=== PATIENT | male | born 1935 | race Caucasian/White ===

== ENCOUNTER 2017-04-19 21:41 | Emergency (ER) | payer MEDICARE ==
[~2017-04-19] VITALS: Ht 167.6 cm; Wt 81.8 kg
[~2017-04-19 21:41] MED LIST: ALLO300T2 PO; CALC500T42 PO; FERR325T PO; METO25TA3 PO; PANT40TA3 PO; PRAV20TA2 PO; TAMS0.4C4 PO; XARE15TA PO
[2017-04-19 21:45] VITALS: BP 142/86; PULSE 84; RESP 16; TEMP 98.4; O2SAT 96
[2017-04-19] MEDS ORDERED: SODIUM CHLORIDE 0.9% FLUSH 10 ML FLUSH IVF PRN (22:15)
--- NOTE | 2017-04-19 22:18 | PD ---
HPI Chief Complaint: General Weakness Time Seen by Provider: 22:14 Travel History International Travel<30 days: No Contact w/Intl Traveler<30days: No Traveled to known affect area: No History of Present Illness HPI 82-year-old white male presents to the emergency department by [facility] for weakness and fatigue. Patient states that he went out for walk at 5 PM today, got tired, and sat in the median on the road and apparently fell asleep. He says that he was walking for long time before he felt tired but could not quite make it home. Currently he complains of being very tired with bilateral leg weakness. Denies falls. He suspects he fell asleep. Patient denies dizziness, LOC, headache, fever, chills, cough, chest pain, shortness of breath, belly pain , leg pain. Chronic medical conditions include atrial fibrillation which he takes anticoagulants. States she down from [facility] yesterday which is a three-hour ride and lives for half the year in [place]. PFSH Past Medical History Hx Anticoagulant Therapy: Yes Atrial Fibrillation: Yes Heart Rhythm Problems: Yes (BUNDLE BRANCH BLOCK) Cardiovascular Problems: Yes High Cholesterol: Yes Diminished Hearing: No Gout: Yes Hypertension: Yes Respiratory: Yes (HOSPITALIZED FOR PNEUMONIA 6 MONTHS AGO IN [place].) Pneumonia: Yes Ulcer: Yes Past Surgical History Tonsillectomy: Yes Other Surgery: Yes (VARICOSE VEIN STRIPPING BOTH LEGS) Social History Alcohol Use: Yes (4 GLASSES OF WINE PER DAY) Tobacco Use: No Substance Use: No Allergies-Medications (Allergen,Severity, Reaction): Coded Allergies: lisinopril (Unverified Allergy, Mild, 04/19/17) Reported Meds & Prescriptions Reported Meds & Active Scripts Active Reported Pravastatin 20 Mg Tab 20 Mg PO DAILY Xarelto (Rivaroxaban) 15 Mg Tab 15 Mg PO DAILY Calcium 500 Mg Tab 500 Mg PO DAILY Ferrous Sulfate 325 Mg Tab 325 Mg PO DAILY Pantoprazole (Pantoprazole Sodium) 40 Mg Tab 40 Mg PO DAILY Metoprolol Tartrate 25 Mg Tab 25 Mg PO DAILY Allopurinol 300 Mg Tab 300 Mg PO DAILY Tamsulosin (Tamsulosin HCl) 0.4 Mg Cap 0.4 Mg PO HS Review of Systems Except as stated in HPI: all other systems reviewed are Neg Physical Exam Narrative GENERAL: Well-developed well-nourished appearing fatigued in no apparent distress, urine odor SKIN: Focused skin assessment warm/dry. No ecchymosis, erythema or edema. No evidence of trauma HEAD: Atraumatic. Normocephalic. EYES: Pupils equal and round. No scleral icterus. No injection or drainage. ENT: No nasal bleeding or discharge. Mucous membranes pink and moist. NECK: Trachea midline. No JVD. No midline cervical tenderness CARDIOVASCULAR: Regular rate and rhythm. No murmur appreciated. RESPIRATORY: No accessory muscle use. Clear to auscultation. Breath sounds equal bilaterally. GASTROINTESTINAL: Abdomen soft, non-tender, nondistended. Hepatic and splenic margins not palpable. MUSCULOSKELETAL: No obvious deformities. No clubbing. No cyanosis. No edema. Homans sign negative bilateral legs NEUROLOGICAL: Awake and alert. No obvious cranial nerve deficits. Motor grossly within normal limits. Normal speech. PSYCHIATRIC: Appropriate mood and affect; insight and judgment normal. Data Data Last Documented VS Vital Signs Date Time Temp Pulse Resp B/P (MAP) Pulse Ox O2 Delivery O2 Flow Rate FiO2 04/19/17 21:45 98.4 84 16 142/86 (104) 96 Orders Orders Electrocardiogram (04/19/17 22:14) Complete Blood Count With Diff (04/19/17 22:14) Comprehensive Metabolic Panel (04/19/17 22:14) Magnesium (Mg) (04/19/17 22:14) B-Type Natriuretic Peptide (04/19/17 22:14) Ckmb (Isoenzyme) Profile (04/19/17 22:14) Troponin I (04/19/17 22:14) Act Partial Throm Time (Ptt) (04/19/17 22:14) Prothrombin Time / Inr (Pt) (04/19/17 22:14) Urinalysis - C+S If Indicated (04/19/17 22:14) Chest, Single Ap (04/19/17 22:14) Blood Glucose (04/19/17 22:14) Ecg Monitoring (04/19/17 22:14) Iv Access Insert/Monitor (04/19/17 22:14) Oximetry (04/19/17 22:14) Sodium Chloride 0.9% Flush (Ns Flush) (04/19/17 22:15) Orthostatic Vital Signs (04/19/17 22:14) Labs Laboratory Tests Test 04/19/17 22:14 04/19/17 22:35 White Blood Count 11.5 TH/MM3 Red Blood Count 4.11 MIL/MM3 Hemoglobin 14.0 GM/DL Hematocrit 41.5 % Mean Corpuscular Volume 100.9 FL Mean Corpuscular Hemoglobin 34.1 PG Mean Corpuscular Hemoglobin Concent 33.9 % Red Cell Distribution Width 13.4 % Platelet Count 136 TH/MM3 Mean Platelet Volume 8.5 FL Neutrophils (%) (Auto) 85.6 % Lymphocytes (%) (Auto) 4.7 % Monocytes (%) (Auto) 9.5 % Eosinophils (%) (Auto) 0.0 % Basophils (%) (Auto) 0.2 % Neutrophils # (Auto) 9.8 TH/MM3 Lymphocytes # (Auto) 0.5 TH/MM3 Monocytes # (Auto) 1.1 TH/MM3 Eosinophils # (Auto) 0.0 TH/MM3 Basophils # (Auto) 0.0 TH/MM3 CBC Comment DIFF FINAL Differential Comment MDM Medical Decision Making Medical Screen Exam Complete: Yes Emergency Medical Condition: Yes Differential Diagnosis Hypoglycemia versus rhabdo versus electrolyte abnormality Narrative Course 82-year-old male presents emergency department for weakness and fatigue after walking for several hours this afternoon. She started walking about 5 PM and was found in the median of the road approximately 1-1/2 hours ago. Patient states that he sat down and fell asleep. Patient denies being lost however [facility] states he was lost. Patient currently complains of bilateral leg weakness. Patient has A. fib his compliance with medication. Denies history of CVA, pulmonary or abdominal issues. Labs pending Imaging pending Discussed case with Dr Young and will transfer care over to him. Condition: Stable Zeny Lundberg Apr 19, 2017 22:18
[2017-04-19 22:39] VITALS: BP 144/85; RESP 16
[2017-04-19 22:45] LABS: AUTOMATED NEUTROPHIL # 9.8 TH/MM3 (1.8-7.7); BASOPHIL % 0.2 % (0.0-2.0); HEMATOCRIT 41.5 % (39.0-51.0); HEMO FLAGS DIFF FINAL; LYMPH % 4.7 % (9.0-44.0); LYMPHOCYTE # 0.5 TH/MM3 (1.0-4.8); MEAN CELL VOLUME 100.9 FL (80.0-100.0); MEAN CORPUSCULAR HEMOGLOBIN 34.1 PG (27.0-34.0); MEAN CORPUSCULAR HGB CONC 33.9 % (32.0-36.0); MONO % 9.5 % (0.0-8.0); NEUT % 85.6 % (16.0-70.0); PLATELET COUNT 136 TH/MM3 (150-450); RED BLOOD COUNT 4.11 MIL/MM3 (4.50-5.90); RED CELL DISTRIBUTION WIDTH 13.4 % (11.6-17.2); WHITE BLOOD COUNT 11.5 TH/MM3 (4.0-11.0)
[2017-04-19 23:01] LABS: INTERNATIONAL NORMALIZED RATIO 1.3 RATIO
[2017-04-19 23:07] LABS: ANION GAP 10 MEQ/L (5-15); BICARBONATE 26.3 MEQ/L (21.0-32.0); BLOOD UREA NITROGEN 11 MG/DL (7-18); CHLORIDE 108 MEQ/L (98-107); GLOMERULAR FILTRATION RATE 57 ML/MIN (>89); POTASSIUM 3.8 MEQ/L (3.5-5.1); SODIUM (NA) 144 MEQ/L (136-145)
[2017-04-19 23:08] LABS: ALT (GPT) 25 U/L (12-78); AST (GOT) 37 U/L (15-37)
--- NOTE | 2017-04-19 23:08 | RADRPT ---
EXAM DATE/TIME: 04/19/2017 22:18 [facility] COMPARISON: No previous studies available for comparison. INDICATIONS : Palpitations and weakness. MEDICAL HISTORY : A-fib. SURGICAL HISTORY : None. ENCOUNTER: Initial ACUITY: 1 day PAIN SCORE: 0/10 LOCATION: Bilateral chest FINDINGS: A single view of the chest demonstrates the lungs to be symmetrically aerated without evidence of mas s, infiltrate or effusion. Minimal basilar atelectasis. Tortuous aorta. CONCLUSION: 1. Minimal basilar atelectasis. Tortuous aorta. Daron Rivas MD on April 19, 2017 at 23:06 Board Certified Radiologist. This report was verified electronically.
[2017-04-19 23:12] LABS: ALKALINE PHOSPHATASE 93 U/L (45-117); CREATINE KINASE 276 U/L (39-308); TOTAL BILIRUBIN ADULT 1.5 MG/DL (0.2-1.0)
[2017-04-19 23:25] LABS: CKMB 2.4 NG/ML (0.5-3.6)
[2017-04-19 23:38] VITALS: BP 141/87; RESP 16
[2017-04-19 23:39] VITALS: BP 148/86; RESP 16
--- NOTE | 2017-04-20 01:42 | PD ---
Physical Exam Narrative Patient was seen by my physical therapy assistant and signed out to me. Data Data Last Documented VS Vital Signs Date Time Temp Pulse Resp B/P (MAP) Pulse Ox O2 Delivery O2 Flow Rate FiO2 04/19/17 23:39 77 16 148/86 (106) 04/19/17 21:45 98.4 96 Orders Orders Electrocardiogram (04/19/17 22:14) Complete Blood Count With Diff (04/19/17 22:14) Comprehensive Metabolic Panel (04/19/17 22:14) Magnesium (Mg) (04/19/17 22:14) B-Type Natriuretic Peptide (04/19/17 22:14) Ckmb (Isoenzyme) Profile (04/19/17 22:14) Troponin I (04/19/17 22:14) Act Partial Throm Time (Ptt) (04/19/17 22:14) Prothrombin Time / Inr (Pt) (04/19/17 22:14) Urinalysis - C+S If Indicated (04/19/17 22:14) Chest, Single Ap (04/19/17 22:14) Blood Glucose (04/19/17 22:14) Ecg Monitoring (04/19/17 22:14) Iv Access Insert/Monitor (04/19/17 22:14) Oximetry (04/19/17 22:14) Sodium Chloride 0.9% Flush (Ns Flush) (04/19/17 22:15) Orthostatic Vital Signs (04/19/17 22:14) CKMB (04/19/17 22:35) CKMB% (04/19/17 22:35) Labs Laboratory Tests Test 04/19/17 22:14 04/19/17 22:35 White Blood Count 11.5 TH/MM3 Red Blood Count 4.11 MIL/MM3 Hemoglobin 14.0 GM/DL Hematocrit 41.5 % Mean Corpuscular Volume 100.9 FL Mean Corpuscular Hemoglobin 34.1 PG Mean Corpuscular Hemoglobin Concent 33.9 % Red Cell Distribution Width 13.4 % Platelet Count 136 TH/MM3 Mean Platelet Volume 8.5 FL Neutrophils (%) (Auto) 85.6 % Lymphocytes (%) (Auto) 4.7 % Monocytes (%) (Auto) 9.5 % Eosinophils (%) (Auto) 0.0 % Basophils (%) (Auto) 0.2 % Neutrophils # (Auto) 9.8 TH/MM3 Lymphocytes # (Auto) 0.5 TH/MM3 Monocytes # (Auto) 1.1 TH/MM3 Eosinophils # (Auto) 0.0 TH/MM3 Basophils # (Auto) 0.0 TH/MM3 CBC Comment DIFF FINAL Differential Comment Prothrombin Time 14.0 SEC Prothromb Time International Ratio 1.3 RATIO Activated Partial Thromboplast Time 28.0 SEC Blood Urea Nitrogen 11 MG/DL Creatinine 1.22 MG/DL Random Glucose 107 MG/DL Total Protein 6.4 GM/DL Albumin 3.5 GM/DL Calcium Level 8.5 MG/DL Magnesium Level 1.0 MG/DL Alkaline Phosphatase 93 U/L Aspartate Amino Transf (AST/SGOT) 37 U/L Alanine Aminotransferase (ALT/SGPT) 25 U/L Total Bilirubin 1.5 MG/DL Sodium Level 144 MEQ/L Potassium Level 3.8 MEQ/L Chloride Level 108 MEQ/L Carbon Dioxide Level 26.3 MEQ/L Anion Gap 10 MEQ/L Estimat Glomerular Filtration Rate 57 ML/MIN Total Creatine Kinase 276 U/L Creatine Kinase MB 2.4 NG/ML Troponin I 0.03 NG/ML B-Type Natriuretic Peptide 81 PG/ML MDM Supervised Visit with THIEN: Yes Interpretation(s) 1:35 AM. Chest x-ray shows no acute consolidation. Minimal basilar atelectasis. CBC WBC 11.5. Hemoglobin 14.0. MCV 100.9. Platelet 136. 85 neutrophil. CMP within normal limit. Cardiac enzymes are normal. INR 1.3. Narrative Course 1:42 AM. Reexamination patient's feeling fine. Patient has no complaint. Patient wants to leave. Diagnosis Primary Impression: Weakness Patient Instructions: General Instructions Additional Instruction: Encourage by mouth fluids. Follow-up with personal physician. Return as needed. Med/Other Pt SpecificInfo: No Change to Meds Disposition: 01 DISCHARGE HOME Condition: Stable Oliverio Young MD Apr 20, 2017 01:42
[2017-04-20 07:00] VITALS: BP 130/81; PULSE 76; RESP 16; TEMP 97.8; O2SAT 98
[2017-04-20 07:44] LABS: BACTERIA, URINE RARE /hpf; BLOOD, URINE TRACE (NEG); COMMENT (UR) CULT NOT INDICATED; CULTURE IF INDICATED CULT NOT INDICATED; GLUCOSE,URINE NEG (NEG); HYALINE CAST, URINE 29 /lpf (RARE); KETONE, URINE 40 mg/dL (NEG); MUCUS URINE FEW /lpf (OCC); NITRITE,URINE NEG (NEG); PH, URINE 5.5 (5.0-8.5); SQUAMOUS EPITHELIAL CELL URINE 1 /hpf (0-5); URINE COLOR YELLOW (YELLW/STRAW)
--- NOTE | 2017-04-20 09:10 | EKG ---
Date Performed: 04/19/2017 Time Performed: 23:13:14 PTAGE: 82 years EKG: Sinus rhythm LEFT AXIS DEVIATION LEFT BUNDLE BRANCH BLOCK ABNORMAL ECG PREVIOUS TRACING : 07/10/2007 21.04 No significant change from previous tracing noted. DOCTOR: Francisco Lazaro Interpretating Date/Time 04/20/2017 09:09:50
[2017-04-20 09:23] VITALS: BP 122/83; TEMP 97.9
== END 2017-04-20 09:23 | disposition home or self-care (01) ==
LOC: NEPC 21:41
DX: R53.1 Weakness (principal); E78.5 Hyperlipidemia, unspecified; I10 Essential (primary) hypertension; I48.91 Unspecified atrial fibrillation; Z79.01 Long term (current) use of anticoagulants
CPT/HCPCS: 71010; 80053; 81001; 82550; 82552; 83735; 83880; 84484; 85025; 85610; 85730; 93005

== ENCOUNTER 2017-05-21 22:11 | Observation (INO) | payer MEDICARE ==
[~2017-05-21] VITALS: Ht 170.2 cm; Wt 85.0 kg
[~2017-05-21 22:11] MED LIST changes: -CALC500T42 PO; -FERR325T PO
[2017-05-21 22:17] VITALS: BP 143/74; PULSE 79; RESP 18; TEMP 98.1; O2SAT 99
[2017-05-21] MEDS ORDERED: DIPHTH/TETANUS/ACEL PERTUSSIS (BOOSTER) 0.5 ML VIAL/PFS IM ONE (22:30)
[2017-05-21] MEDS ORDERED: ceFAZolin 2 GM PREMIX 50 ML IV ONE (22:30)
[2017-05-21] MEDS ORDERED: SODIUM CHLORIDE 0.9% FLUSH 10 ML FLUSH IVF PRN (22:30)
--- NOTE | 2017-05-21 22:34 | PD ---
HPI Chief Complaint: Fall Time Seen by Provider: 22:21 Travel History International Travel<30 days: No Contact w/Intl Traveler<30days: No Traveled to known affect area: No History of Present Illness HPI The patient is an 82 year old male who presents to the [facility] emergency department with a history of reportedly being found in his front yard the on the ground prior to arrival. The patient was noted to have a hematoma to the occipital scalp. The patient cannot recall how he ended up there. The patient reports that the last thing that he remembers is being at the [employer] and drinking 3-4 glasses of wine this evening. He reports that he does remember driving home, however that is the last thing that he can recall prior to being brought to the emergency department. He denies having any neck pain, paresthesias, weakness of his extremities. He denies having any chest pain, chest pressure, or shortness of breath. The patient denies having any extremity pain or loss of range of motion. The patient denies having any abdominal pain. On review of systems, the patient denies having any recent fevers, cough, congestion, neck pain,vomiting, diarrhea, urinary symptoms, or other neurologic symptoms. The patient cannot recall when his tetanus was last updated. The patient has a history of atrial fibrillation and is on Xarelto. He reports that he did take his dose earlier today. [facility] Past Medical History Narrative Medical The patient's past medical history is significant for atrial fibrillation, chronically anticoagulated on Xarelto, history of a left bundle branch block, history of hyperlipidemia, gout, hypertension, pneumonia, peptic ulcer disease, history of varicose vein Hx Anticoagulant Therapy: Yes Atrial Fibrillation: Yes Heart Rhythm Problems: Yes (BUNDLE BRANCH BLOCK) Cardiovascular Problems: Yes (AFIB) High Cholesterol: Yes Diminished Hearing: No Gout: Yes Hypertension: Yes Respiratory: Yes (HOSPITALIZED FOR PNEUMONIA 6 MONTHS AGO IN [place].) Pneumonia: Yes Ulcer: Yes Past Surgical History Narrative Surgical The patient's past surgical history is significant for varicose vein stripping in both legs, tonsillectomy. Tonsillectomy: Yes Other Surgery: Yes (VARICOSE VEIN STRIPPING BOTH LEGS) Social History Alcohol Use: Yes (4 GLASSES OF WINE PER DAY) Tobacco Use: No Substance Use: No Allergies-Medications (Allergen,Severity, Reaction): Coded Allergies: lisinopril (Unverified Allergy, Mild, 05/21/17) Reported Meds & Prescriptions Reported Meds & Active Scripts Active Reported Pravastatin 20 Mg Tab 20 Mg PO DAILY Xarelto (Rivaroxaban) 15 Mg Tab 15 Mg PO DAILY Pantoprazole (Pantoprazole Sodium) 40 Mg Tab 40 Mg PO DAILY Metoprolol Tartrate 25 Mg Tab 25 Mg PO DAILY Allopurinol 300 Mg Tab 300 Mg PO DAILY Tamsulosin (Tamsulosin HCl) 0.4 Mg Cap 0.4 Mg PO HS Review of Systems General / Constitutional: No: Fever Eyes: No: Visual changes HENT: No: Headaches, Neck Stiffness, Neck Pain Cardiovascular: No: Chest Pain or Discomfort Respiratory: No: Shortness of Breath Gastrointestinal: No: Abdominal Pain Genitourinary: No: Dysuria Musculoskeletal: No: Pain Skin: No Rash Neurologic: Positive: Headache, No: Weakness, Focal Abnormalities, Change in Mentation, Slurred Speech, Sensory Disturbance Psychiatric: No: Depression Endocrine: No: Polydipsia Hematologic/Lymphatic: No: Easy Bruising Physical Exam Narrative General: The patient is a well-developed well-nourished male in no acute distress. The patient is brought in on a back board in full c-spine immobilization by emergency services. Head and Neck exam: Head is normocephalic, without evidence of trauma to the posterior occipital scalp with a hematoma noted, overlying abrasion noted, hair is matted with blood , making it difficult to visualize the wound. No apparent laceration is noted. No active bleeding is noted. No facial bone tenderness or increased facial bone mobility noted on palpation. Eyes: EOMI, pupils are equal round and reactive to light. Nose: Midline septum with pink mucous membranes Mouth: Dentition unremarkable. Moist mucus membranes. Posterior oropharynx is not erythematous. No tonsillar hypertrophy. Uvula midline. Airway patent. Neck: The patient is immobilized in a cervical collar. No tracheal deviation. The trachea appears midline. Cardiovascular: Regular rate and rhythm without murmurs, gallops, or rubs. No pulse deficit to the extremities on simultaneous auscultation and palpation of his radial artery Lungs: Clear to auscultation bilaterally. No wheezes, rhonchi, or rales. No chest wall tenderness to palpation. No erythema or ecchymosis noted. No crepitus , step off, or flail segment noted. Abdomen: Soft, without tenderness to palpation in all 4 quadrants of the abdomen. No guarding, rebound, or rigidity. No erythema or ecchymosis noted. Extremities: No instability or pain noted on pelvic rock. No clubbing or cyanosis. The patient has trace to 1+ pitting edema bilateral lower extremities which he reports is chronic and no worse than usual. 2+ pulses in all 4 extremities. No extremity tenderness or deformity noted on palpation or passive/ active range of motion. Back: The patient was log rolled off of the back board. No spinous process tenderness to palpation. No stepoff or crepitus noted. No costovertebral angle tenderness to palpation. No erythema or ecchymosis. Neurologic Exam: Cranial nerves 2-12 were intact on exam. Strength is 5/5 in all 4 extremities. No sensory deficits noted. Skin Exam: No rash noted. Intact skin that is warm and dry. Data Data Last Documented VS Vital Signs Date Time Temp Pulse Resp B/P (MAP) Pulse Ox O2 Delivery O2 Flow Rate FiO2 05/22/17 00:00 72 19 124/71 (88) 99 Room Air 05/21/17 22:17 98.1 Orders Orders I-Stat Profile (05/21/17 22:21) I-Stat Creatinine (05/21/17 22:21) Complete Blood Count With Diff (05/21/17 22:21) Prothrombin Time / Inr (Pt) (05/21/17 22:21) Act Partial Throm Time (Ptt) (05/21/17 22:21) Type And Screen (05/21/17 22:21) Fibrinogen (05/21/17 22:21) Alcohol (Ethanol) (05/21/17 22:21) Urinalysis - C+S If Indicated (05/21/17 22:21) Chest, Single Ap (05/21/17 22:21) Pelvis, Ap Only (Routine) (05/21/17 22:21) Ct Brain W/O Iv Contrast(Rout) (05/21/17 22:21) Ct Cerv Spine W/O Contrast (05/21/17 22:21) Electrocardiogram (05/21/17 22:21) Iv Access Insert/Monitor (05/21/17 22:21) Ecg Monitoring (05/21/17 22:21) Oximetry (05/21/17 22:21) Oxygen Administration (05/21/17 22:21) Cefazolin 2 Gm Premix (Ancef 2 Gm Premix (05/21/17 22:30) Inwt-Aos-Hlqnxz (Booster) Inj (Boostrix (05/21/17 22:30) Sodium Chloride 0.9% Flush (Ns Flush) (05/21/17 22:30) Drug Screen, Random Urine (05/21/17 22:21) Basic Metabolic Panel (Bmp) (05/21/17 22:21) Creatine Kinase (Cpk) (05/21/17 22:22) Troponin I (05/21/17 22:22) Admit Order (Ed Use Only) (05/22/17 00:38) Labs Laboratory Tests Test 05/21/17 22:22 White Blood Count 4.2 TH/MM3 Red Blood Count 4.72 MIL/MM3 Hemoglobin 16.4 GM/DL Bedside Hemoglobin 17.7 G/DL Hematocrit 49.0 % Bedside Hematocrit 52.0 % Mean Corpuscular Volume 103.9 FL Mean Corpuscular Hemoglobin 34.8 PG Mean Corpuscular Hemoglobin Concent 33.5 % Red Cell Distribution Width 15.6 % Platelet Count 116 TH/MM3 Mean Platelet Volume 9.0 FL Neutrophils (%) (Auto) 68.4 % Lymphocytes (%) (Auto) 19.7 % Monocytes (%) (Auto) 10.3 % Eosinophils (%) (Auto) 1.0 % Basophils (%) (Auto) 0.6 % Neutrophils # (Auto) 2.9 TH/MM3 Lymphocytes # (Auto) 0.8 TH/MM3 Monocytes # (Auto) 0.4 TH/MM3 Eosinophils # (Auto) 0.0 TH/MM3 Basophils # (Auto) 0.0 TH/MM3 CBC Comment DIFF FINAL Differential Comment Prothrombin Time 14.0 SEC Prothromb Time International Ratio 1.3 RATIO Activated Partial Thromboplast Time 30.1 SEC Fibrinogen 155 mg/dL Bedside Sodium 135 MMOL/L Blood Urea Nitrogen 3 MG/DL Creatinine 0.95 MG/DL Random Glucose 85 MG/DL Calcium Level 7.9 MG/DL Sodium Level 135 MEQ/L Potassium Level 5.0 MEQ/L Chloride Level 99 MEQ/L Carbon Dioxide Level 21.8 MEQ/L Bedside Potassium 5.2 MMOL/L Bedside Chloride 98 MMOL/L Anion Gap 14 MEQ/L Bedside Blood Urea Nitrogen LESS THAN 3 MG/DL Bedside Creatinine 1.3 MG/DL Estimat Glomerular Filtration Rate 76 ML/MIN Bedside Glucose 86 MG/DL Total Creatine Kinase 155 U/L Troponin I LESS THAN 0.02 NG/ML Ethyl Alcohol Level 190 MG/DL MDM Medical Screen Exam Complete: Yes Emergency Medical Condition: Yes Medical Record Reviewed: Yes EKG Prior to Arrival: Yes Interpretation(s) Last Impressions Pelvis X-Ray 05/21/172220 Signed Impressions: Service Date/Time: Sunday, May 21, 2017 22:26 - CONCLUSION: Unremarkable examination of the pelvis. Arnaud Hurley MD Head CT 05/21/172220 Signed Impressions: Service Date/Time: Sunday, May 21, 2017 23:07 - CONCLUSION: Stable examination. There is diffuse atrophy present and mild enlargment of the ventricular system. No evidence of hemorrhage or edema. Tono Howard MD Chest X-Ray 05/21/172220 Signed Impressions: Service Date/Time: Sunday, May 21, 2017 22:23 - CONCLUSION: No acute abnormality seen. There is a questionable focal density/mass in the left upper lung that can be further evaluated with a CT examination the chest. 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 No evidence of an acute fracture. Tono Howard MD Differential Diagnosis Intracranial hemorrhage, versus cervical spine injury, versus intrathoracic trauma, versus pelvis injury, versus syncopal event, versus fall related to alcohol intoxication Narrative Course During the course of the patients emergency department visit, the patients history, examination, and differential diagnosis were reviewed with the patient. The patient was placed on a cardiac rn with oximetry and frequent blood pressure monitoring. The patient had IV access obtained and blood work sent for analysis. A level II trauma alert was called on this patient's case as he meets criteria for level II trauma alert based on a ground-level fall with head injury and anticoagulation on Xarelto. CT scan of the head, neck has been ordered. A chest x-ray, pelvis x-ray has been ordered. The patient had an ECG done on arrival that shows atrial fibrillation, left bundle branch block , heart rate of 73, no other acute ST segment changes. The patient was initially provided an update his tetanus, Ancef 2 g IV, normal saline IV fluids. The patients laboratory studies were reviewed and remarkable for a white count of 4.2, hemoglobin 18.4, platelets 116 with 10.3 monos, CMP is remarkable for a sodium of 135, potassium 5.2, BUN less than 3, creatinine 0.95, GFR 76, calcium 7.9, CPK 155, troponin I less than 0.02, PT 14, INR 1.3, PTT 30.1, fibrinogen 155, urine drug screen is negative, alcohol level CXC, urinalysis within normal limits. Radiology studies were reviewed and remarkable for a chest x-ray that shows no acute abnormality. There is a questionable focal density in the left upper lung that could be further evaluated with a CT scan of the chest. Pelvis x-ray shows no acute abnormality, CT scan of the brain shows diffuse atrophy present and mild enlargement of the ventricular system, no evidence of hemorrhage or edema. CT scan of the C-spine shows degenerative disc disease at multiple levels, no evidence of acute fracture . The patient's case was discussed with , the trauma surgeon as the patient has no traumatic injuries that will require surgical intervention, the patient has been cleared by the trauma service. As it is unclear as to whether the patient tripped and fell, versus had a syncopal event, the patient will be admitted for observation. The patients results were discussed with the patient, including the plan of care. I explained that further testing and/ or monitoring is indicated based on the patients history, examination, and/ or laboratory findings. Therefore, I recommended admission for additional evaluation. The patient expressed understanding and was agreeable with this plan. The patient was admitted to the hospital in stable condition and sent to a bed under the care of [facility]. Trauma Alert - Level Two Trauma Alert Level Two: Full trauma team activate, Patient evaluated, Trauma surgeon called Time Surgeon Called: 22:22 (Surgeon notified) Physician Communication The patient's case including history, pertinent physical examination findings, and laboratory studies were discussed with Dr. Tobar. Given the fact that the patient has no surgical related requirements for admission, he did recommend that the patient be admitted to the medical service for observation for possible syncope, versus fall related to alcohol intoxication The patient's case including history, pertinent physical examination findings, and laboratory studies were discussed with Dr. Thomas. It was agreed that the patient would be admitted to the [facility]. Diagnosis Diagnosis: Primary Impression: Fall Qualified Codes: W19.XXXA - Unspecified fall, initial encounter Additional Impressions: Head injury Qualified Codes: S09.90XA - Unspecified injury of head, initial encounter Scalp contusion Qualified Codes: S00.03XA - Contusion of scalp, initial encounter HX: anticoagulation Admitting Physician Requests: Cristina Lees MD May 21, 2017 22:34
[2017-05-21 23:06] LABS: AUTOMATED NEUTROPHIL # 2.9 TH/MM3 (1.8-7.7); BASOPHIL % 0.6 % (0.0-2.0); HEMO FLAGS DIFF FINAL; LYMPH % 19.7 % (9.0-44.0); LYMPHOCYTE # 0.8 TH/MM3 (1.0-4.8); MEAN CELL VOLUME 103.9 FL (80.0-100.0); MEAN CORPUSCULAR HEMOGLOBIN 34.8 PG (27.0-34.0); MEAN CORPUSCULAR HGB CONC 33.5 % (32.0-36.0); MONO % 10.3 % (0.0-8.0); NEUT % 68.4 % (16.0-70.0); PLATELET COUNT 116 TH/MM3 (150-450); RED BLOOD COUNT 4.72 MIL/MM3 (4.50-5.90); RED CELL DISTRIBUTION WIDTH 15.6 % (11.6-17.2); WHITE BLOOD COUNT 4.2 TH/MM3 (4.0-11.0)
[2017-05-21 23:16] VITALS: O2SAT 99
[2017-05-21 23:17] VITALS: BP 134/75; PULSE 80; RESP 18; O2SAT 99
--- NOTE | 2017-05-21 23:17 | RADRPT ---
EXAM DATE/TIME: 05/21/2017 22:23 [facility] COMPARISON: CHEST SINGLE AP, April 19, 2017, 22:18. INDICATIONS : Trauma Alert level 2, possible fall Evaluate chest for trauma MEDICAL HISTORY : A-fib SURGICAL HISTORY : None. ENCOUNTER: Initial ACUITY: 1 day PAIN SCORE: 0/10 LOCATION: chest FINDINGS: The heart size is normal. There is a possible focal mass in the left upper lung. Lungs are otherwise clear. No pneumothorax or pleural effusion is seen. CONCLUSION: No acute abnormality seen. There is a questionable focal density/mass in the left upper lung that can be further evaluated with a CT examination the chest. Arnaud Hurley MD on May 21, 2017 at 23:14 Board Certified Radiologist. This report was verified electronically.
--- NOTE | 2017-05-21 23:18 | RADRPT ---
EXAM DATE/TIME: 05/21/2017 22:26 [facility] COMPARISON: No previous studies available for comparison. INDICATIONS : Trauma Alert level 2, possible fall Evaluate pelvis for trauma MEDICAL HISTORY : A-fib SURGICAL HISTORY : None. ENCOUNTER: Initial ACUITY: 1 day PAIN SCORE: 0/10 LOCATION: Pelvis FINDINGS: A single frontal view of the pelvis demonstrates no evidence of fracture. The bony pelvic ring is in tact. Bony mineralization is normal. The soft tissues are intact. Vascular calcifications are seen. CONCLUSION: Unremarkable examination of the pelvis. Arnaud Hurley MD on May 21, 2017 at 23:16 Board Certified Radiologist. This report was verified electronically.
[2017-05-21 23:19] LABS: APTT (PATIENT) 30.1 SEC (24.3-30.1); INTERNATIONAL NORMALIZED RATIO 1.3 RATIO
[2017-05-21 23:25] LABS: ANION GAP 14 MEQ/L (5-15); BICARBONATE 21.8 MEQ/L (21.0-32.0); BLOOD UREA NITROGEN 3 MG/DL (7-18); CHLORIDE 99 MEQ/L (98-107); GLOMERULAR FILTRATION RATE 76 ML/MIN (>89); SODIUM (NA) 135 MEQ/L (136-145)
[2017-05-21 23:27] LABS: ALCOHOL 190 MG/DL (0-5)
--- NOTE | 2017-05-21 23:28 | RADRPT ---
EXAM DATE/TIME: 05/21/2017 23:07 [facility] COMPARISON: CT BRAIN W/O CONTRAST, May 07, 2016, 13:47. INDICATIONS : Trauma alert, fall. Hemtoma to back of head. RADIATION DOSE: 56.35 CTDIvol (mGy) MEDICAL HISTORY : Cardiovascular disease. Hypertension. SURGICAL HISTORY : None. ENCOUNTER: Initial ACUITY: 1 day PAIN SCALE: 0/10 LOCATION: cranial TECHNIQUE: Multiple contiguous axial images were obtained of the head. Using automated exposure control and adj ustment of the mA and/or kV according to patient size, radiation dose was kept as low as reasonably a chievable to obtain optimal diagnostic quality images. DICOM format image data is available electro nically for review and comparison. FINDINGS: CEREBRUM: The ventricles are prominent for age. There is diffuse atrophy present. No evidence of midline shift, mass lesion, hemorrhage or acute infarction. No extra-axial fluid collections are seen. POSTERIOR FOSSA: The cerebellum and brainstem are intact. The 4th ventricle is midline. The cerebellopontine angle i s unremarkable. EXTRACRANIAL: The visualized portion of the orbits is intact. SKULL: The calvaria is intact. No evidence of skull fracture. CONCLUSION: Stable examination. There is diffuse atrophy present and mild enlargment of the ventricular system. No evidence of hemorrhage or edema. Tono Howard MD on May 21, 2017 at 23:26 Board Certified Radiologist. This report was verified electronically.
[2017-05-21 23:36] LABS: I-STAT POTASSIUM 5.2 MMOL/L (3.5-4.9); I-STAT SODIUM 135 MMOL/L (138-146)
--- NOTE | 2017-05-21 23:37 | RADRPT ---
EXAM DATE/TIME: 05/21/2017 23:07 [facility] COMPARISON: No previous studies available for comparison. INDICATIONS : Trauma alert, fall. RADIATION DOSE: 33.66 CTDIvol (mGy) MEDICAL HISTORY : Cardiovascular disease. Hypertension. SURGICAL HISTORY : None. ENCOUNTER: Initial ACUITY: 1 day PAIN SCALE: 0/10 LOCATION: neck TECHNIQUE: Volumetric scanning of the cervical spine was performed. Multiplanar reconstructions in the sagittal, coronal and oblique axial planes were performed. Using automated exposure control and adjustment o f the mA and/or kV according to patient size, radiation dose was kept as low as reasonably achievable to obtain optimal diagnostic quality images. DICOM format image data is available electronically f or review and comparison. FINDINGS: VERTEBRAE: Normal vertebral body height. Marked intervertebral disc space narrowing from C4-C7. There is mild a nterior spondylolisthesis of C3 on C4.. ALIGNMENT: No evidence of subluxation. C2-C3: The bony spinal canal is normal in size. No evidence of disc bulge or herniation. The neural forami na are bilaterally patent. C3-C4: The bony spinal canal is normal in size. No evidence of disc bulge or herniation. The neural forami na are bilaterally patent. Left-sided facet hypertrophy. C4-C5: The bony spinal canal is slightly narrowed secondary to a ridge of disc osteophyte complex. No evide nce of disc bulge or herniation. The neural foramina are bilaterally patent. C5-C6: The bony spinal canal is slightly narrowed secondary to a ridge of disc osteophyte complex. No evide nce of disc bulge or herniation. Mild neural foramen narrowing on the right. C6-C7: The bony spinal canal is slightly narrowed secondary to a ridge of disc osteophyte complex. No evide nce of disc bulge or herniation. The neural foramina are bilaterally patent. C7-T1: The bony spinal canal is normal in size. No evidence of disc bulge or herniation. The neural forami na are bilaterally patent. CONCLUSION: Degenerative disc disease at multiple levels. No evidence of an acute fracture. Tono Howard MD on May 21, 2017 at 23:33 Board Certified Radiologist. This report was verified electronically.
[2017-05-22] VITALS (12 sets, daily range): BP systolic 112–158; BP diastolic 59–98; PULSE 63–90; RESP 16–20; TEMP 98–98.4; O2SAT 95–99
[2017-05-22] LABS: CREATINE KINASE 155 U/L (39-308)
[2017-05-22] MEDS ORDERED: SODIUM CHLORIDE 0.9% FLUSH 10 ML FLUSH IV FLUSH PRN (01:45)
[2017-05-22] MEDS ORDERED: NALOXONE HCL 0.4 MG/ML AMP IV PUSH PRN (01:45)
[2017-05-22 02:21] LABS: BLOOD, URINE NEG (NEG); COMMENT (UR) CULT NOT INDICATED; CULTURE IF INDICATED CULT NOT INDICATED; GLUCOSE,URINE NEG (NEG); HYALINE CAST, URINE 1 /lpf (RARE); KETONE, URINE NEG (NEG); MUCUS URINE FEW /lpf (OCC); NITRITE,URINE NEG (NEG); URINE COLOR LIGHT-YELLOW (YELLW/STRAW)
[2017-05-22] MEDS ORDERED: LORazepam 2 MG TAB PO PRN (03:45)
[2017-05-22] MEDS ORDERED: LORazepam 1 MG TAB PO PRN (03:45)
[2017-05-22] MEDS ORDERED: LORazepam 2 MG/ML VIAL IV PUSH PRN ×4 (03:45)
[2017-05-22] MEDS ORDERED: FLUMAZENIL 0.5 MG/5 ML VIAL IV PUSH PRN (03:45)
--- NOTE | 2017-05-22 04:04 | HHI.HP ---
[facility] Service [place] [facility] Primary Care Physician Unknown Admission Diagnosis Head injury on anticoagulation, syncope vs fall Diagnoses: Travel History International Travel<30 Days: No Contact w/Intl Traveler <30 Da: No Traveled to Known Affected Are: No History of Present Illness 82-year-old male with a past medical history significant for A. fib anticoagulated on Xarelto brought to the emergency department by EMS after being found in his front yard on the ground. He was noticed to have blood and bruising on the occipital scalp. The patient has no memory of falling and hitting his head. The last thing he remembers is driving home from the [employer] [place] where he had approximately 3-4 glasses of wine. The patient denies any pain. He states he drinks alcohol daily. CT of the cervical spine, pelvis x- ray and head CT were within normal limits. Chest x-ray was significant for a questionable focal density/mass in the left upper lung. The patient has a 3 cm linear laceration on his occipital scalp which is hemostatic. He is alert and oriented at the time of our interview. His alcohol level at the time of his arrival was 190. Review of Systems Denies fever or chills Denies blurry vision, otorrhea, rhinorrhea Denies sore throat and cough No chest pain, palpitations, shortness of breath No abdominal pain Denies constipation/diarrhea/nausea/vomiting Denies muscle pain/weakness No rashes Past Family Social History Past Medical History Atrial fibrillation anticoagulated with Xarelto Hypertension Hyperlipidemia Gout Past Surgical History Varicose vein repair Reported Medications Reported Meds & Active Scripts Active Reported Pravastatin 20 Mg Tab 20 Mg PO DAILY Xarelto (Rivaroxaban) 15 Mg Tab 15 Mg PO DAILY Pantoprazole (Pantoprazole Sodium) 40 Mg Tab 40 Mg PO DAILY Metoprolol Tartrate 25 Mg Tab 25 Mg PO DAILY Allopurinol 300 Mg Tab 300 Mg PO DAILY Tamsulosin (Tamsulosin HCl) 0.4 Mg Cap 0.4 Mg PO HS Allergies: Coded Allergies: lisinopril (Unverified Allergy, Mild, 05/21/17) Family History Patient denies family history of diabetes or coronary disease Social History Denies tobacco. Drinks 2-3 glasses of wine daily. Denies illicit drugs. Physical Exam Vital Signs Vital Signs Date Time Temp Pulse Resp B/P (MAP) Pulse Ox O2 Delivery O2 Flow Rate FiO2 05/22/17 03:00 05/22/17 02:00 72 20 113/60 (77) 97 Room Air 05/22/17 00:00 72 19 124/71 (88) 99 Room Air 05/21/17 23:17 80 18 134/75 (94) 99 Room Air 05/21/17 23:16 99 Room Air 05/21/17 23:16 99 Room Air 05/21/17 22:17 98.1 79 18 143/74 (97) 99 Physical Exam GENERAL: Elderly male lying in bed SKIN: 3 cm laceration on the posterior occipital scalp with hematoma. HEAD: Tenderness in region of occipital scalp EYES: Pupils equal round and reactive. Extraocular motions intact. No scleral icterus. No injection or drainage. ENT: Nose without bleeding, purulent drainage or septal hematoma. Throat without erythema, tonsillar hypertrophy or exudate. Uvula midline. Airway patent. NECK: Trachea midline. No JVD or lymphadenopathy. Supple, nontender, no meningeal signs. CARDIOVASCULAR: Irregular rate without murmurs/rubs/gallops RESPIRATORY: Clear to auscultation. Breath sounds equal bilaterally. No wheezes , rales, or rhonchi. GASTROINTESTINAL: Abdomen soft, non-tender, nondistended. No hepato-splenomegaly , or palpable masses. No guarding. MUSCULOSKELETAL: Extremities without clubbing, cyanosis, or edema. No joint tenderness, effusion, or edema noted. No calf tenderness. Negative Homans sign bilaterally. NEUROLOGICAL: Awake and alert. Cranial nerves II through XII intact. Motor and sensory grossly within normal limits. Normal speech. Laboratory Laboratory Tests Test 05/21/17 22:22 05/22/17 01:50 White Blood Count 4.2 Red Blood Count 4.72 Hemoglobin 16.4 Bedside Hemoglobin 17.7 Hematocrit 49.0 Bedside Hematocrit 52.0 Mean Corpuscular Volume 103.9 Mean Corpuscular Hemoglobin 34.8 Mean Corpuscular Hemoglobin Concent 33.5 Red Cell Distribution Width 15.6 Platelet Count 116 Mean Platelet Volume 9.0 Neutrophils (%) (Auto) 68.4 Lymphocytes (%) (Auto) 19.7 Monocytes (%) (Auto) 10.3 Eosinophils (%) (Auto) 1.0 Basophils (%) (Auto) 0.6 Neutrophils # (Auto) 2.9 Lymphocytes # (Auto) 0.8 Monocytes # (Auto) 0.4 Eosinophils # (Auto) 0.0 Basophils # (Auto) 0.0 CBC Comment DIFF FINAL Differential Comment Prothrombin Time 14.0 Prothromb Time International Ratio 1.3 Activated Partial Thromboplast Time 30.1 Fibrinogen 155 Bedside Sodium 135 Blood Urea Nitrogen 3 Creatinine 0.95 Random Glucose 85 Calcium Level 7.9 Sodium Level 135 Potassium Level 5.0 Chloride Level 99 Carbon Dioxide Level 21.8 Bedside Potassium 5.2 Bedside Chloride 98 Anion Gap 14 Bedside Blood Urea Nitrogen LESS THAN 3 Bedside Creatinine 1.3 Estimat Glomerular Filtration Rate 76 Bedside Glucose 86 Total Creatine Kinase 155 Troponin I LESS THAN 0.02 Ethyl Alcohol Level 190 Urine Color LIGHT-YELLOW Urine Turbidity CLEAR Urine pH 5.0 Urine Specific [place] 1.005 Urine Protein NEG Urine Glucose (UA) NEG Urine Ketones NEG Urine Occult Blood NEG Urine Nitrite NEG Urine Bilirubin NEG Urine Urobilinogen LESS THAN 2.0 Urine Leukocyte Esterase NEG Urine RBC LESS THAN 1 Urine WBC 1 Urine Hyaline Casts 1 Urine Mucus FEW Microscopic Urinalysis Comment CULT NOT INDICATED Urine Opiates Screen NEG Urine Barbiturates Screen NEG Urine Amphetamines Screen NEG Urine Benzodiazepines Screen NEG Urine Cocaine Screen NEG Urine Cannabinoids Screen NEG Result Diagram: 05/21/17222105/21/172221 Caprini VTE Risk Assessment Caprini VTE Risk Assessment: Mod/High Risk (score >= 2) Caprini Risk Assessment Model Point Value = 1 Point Value = 2 Point Value = 3 Point Value = 5 Age 41-60 Minor surgery BMI > 25 kg/m2 Swollen legs Varicose veins or History of unexplained or recurrent spontaneous Oral contraceptives or hormone replacement Sepsis (< 1 month) Serious lung disease, including pneumonia (< 1 month) Abnormal pulmonary function Acute myocardial infarction Congestive heart failure (< 1 month) History of inflammatory bowel disease Medical patient at bed rest Age 61-74 Arthroscopic surgery Major open surgery (> 45 min) Laparoscopic surgery (> 45 min) Malignancy Confined to bed (> 72 hours) Immobilizing plaster cast Central venous access Age >= 75 History of VTE Family history of VTE Factor V Leiden Prothrombin [id number] Lupus anticoagulant Anticardiolipin antibodies Elevated serum homocysteine Heparin-induced thrombocytopenia Other congenital or acquired thrombophilia Stroke (< 1 month) Elective arthroplasty Hip, pelvis, or leg fracture Acute spinal cord injury (< 1 month) Prophylaxis Regimen Total Risk Factor Score Risk Level Prophylaxis Regimen 0-1 Low Early ambulation 2 Moderate Order ONE of the following: *Sequential Compression Device (SCD) *Heparin 5000 units SQ BID 3-4 Higher Order ONE of the following medications: *Heparin 5000 units SQ TID *Enoxaparin/Lovenox 40 mg SQ daily (WT < 150 kg, CrCl > 30 mL/min) *Enoxaparin/Lovenox 30 mg SQ daily (WT < 150 kg, CrCl > 10-29 mL/min) *Enoxaparin/Lovenox 30 mg SQ BID (WT < 150 kg, CrCl > 30 mL/min) AND/OR *Sequential Compression Device (SCD) 5 or more Highest Order ONE of the following medications: *Heparin 5000 units SQ TID (Preferred with Epidurals) *Enoxaparin/Lovenox 40 mg SQ daily (WT < 150 kg, CrCl > 30 mL/min) *Enoxaparin/Lovenox 30 mg SQ daily (WT < 150 kg, CrCl > 10-29 mL/min) *Enoxaparin/Lovenox 30 mg SQ BID (WT < 150 kg, CrCl > 30 mL/min) AND *Sequential Compression Device (SCD) Assessment and Plan Assessment and Plan 82-year-old male with a past medical history significant for A. fib anticoagulated on Xarelto, hypertension, hyperlipidemia brought in by EMS after being found in his front yard with a head laceration. The patient has no memory of the event and his alcohol level was 190. CT of the head showed no acute bleed or edema. 1. Head trauma/fall/possible syncopal event Patient anticoagulated on Xarelto ACS rule out pending, EKG significant for A. fib, LBBB without ST changes, reviewed by me Troponin negative Suspect secondary to acute alcohol intoxication Repeat CBC in a.m. 2. Chest x-ray with focal density/mass CT chest pending for further characterization 3. A. fib Continue Xarelto as no signs of acute bleed Continue metoprolol 4. Hypertension Continue metoprolol 5. Hyperlipidemia Continue statin 6. Gout Continue allopurinol FEN Heart healthy diet Electrolytes: K+ elevated at 5.0, no peak T waves, repeat BMP in am Vero Thomas MD May 22, 2017 04:04
--- NOTE | 2017-05-22 04:53 | RADRPT ---
EXAM DATE/TIME: 05/22/2017 04:12 [facility] COMPARISON: No previous studies available for comparison. INDICATIONS : Abnormal chest x-ray. Evaluate for mass. RADIATION DOSE: 4.09 CTDIvol (mGy) MEDICAL HISTORY : Cardiovascular disease. Hypertension. Ulcers. SURGICAL HISTORY : None. ENCOUNTER: Initial ACUITY: 1 day PAIN SCALE: 0/10 LOCATION: chest TECHNIQUE: Volumetric scanning of the chest was performed. Using automated exposure control and adjustment of t he mA and/or kV according to patient size, radiation dose was kept as low as reasonably achievable to obtain optimal diagnostic quality images. DICOM format image data is available electronically for r eview and comparison. Follow-up recommendations for detected pulmonary nodules are based at a minimum on nodule size and pa tient risk factors according to Fleischner Society Guidelines. FINDINGS: LUNGS: There is no consolidation or pneumothorax. No concerning pulmonary nodule is visualized. PLEURAE: There is no pleural thickening or pleural effusion. MEDIASTINUM: The heart and great vessels demonstrate no acute abnormality. There is no mediastinal or hilar lymph adenopathy. AXILLAE: Within normal limits. No lymphadenopathy. MUSCULOSKELETAL: Within normal limits for patient age. MISCELLANEOUS: The visualized upper abdominal organs demonstrate no acute abnormality. CONCLUSION: Normal examination. Calcified atherosclerotic disease Tono Howard MD on May 22, 2017 at 4:51 Board Certified Radiologist. This report was verified electronically.
[2017-05-22 06:50] LABS: AUTOMATED NEUTROPHIL # 2.6 TH/MM3 (1.8-7.7); BASOPHIL % 0.5 % (0.0-2.0); HEMATOCRIT 42.6 % (39.0-51.0); LYMPH % 27.3 % (9.0-44.0); LYMPHOCYTE # 1.2 TH/MM3 (1.0-4.8); MEAN CELL VOLUME 104.1 FL (80.0-100.0); MEAN CORPUSCULAR HEMOGLOBIN 34.8 PG (27.0-34.0); MEAN CORPUSCULAR HGB CONC 33.4 % (32.0-36.0); MONO % 10.2 % (0.0-8.0); PLATELET COUNT 98 TH/MM3 (150-450); RED BLOOD COUNT 4.09 MIL/MM3 (4.50-5.90); RED CELL DISTRIBUTION WIDTH 14.8 % (11.6-17.2); WHITE BLOOD COUNT 4.3 TH/MM3 (4.0-11.0)
[2017-05-22 06:57] LABS: HEMO FLAGS AUTO DIFF
[2017-05-22 07:37] LABS: BICARBONATE 24.2 MEQ/L (21.0-32.0)
[2017-05-22] MEDS ORDERED: LACTULOSE SYRUP 20 GM/30 ML CUP PO PRN (08:00)
[2017-05-22] MEDS ORDERED: BISACODYL 10 MG SUPP RECTAL PRN (08:00)
[2017-05-22] MEDS ORDERED: ONDANSETRON HCL 4 MG/2 ML VIAL IVP PRN (08:00)
[2017-05-22] MEDS ORDERED: ACETAMINOPHEN 325 MG TAB PO PRN ×2 (08:00)
[2017-05-22] MEDS ORDERED: SENNOSIDES 8.6 MG TAB PO PRN (08:00)
[2017-05-22] MEDS ORDERED: MAGNESIUM HYDROXIDE SUSP 30 ML CUP PO PRN (08:00)
[2017-05-22 08:52] LABS: PLATELET ESTIMATE SMEAR LOW (NORMAL); PLATELET MORPHOLOGY NORMAL (NORMAL)
[2017-05-22 08:53] LABS: SCAN/DIFF AUTO DIFF CONFIRMED
[2017-05-22] MEDS: DOCUSATE SODIUM 50 MG/SENNA 8.6 MG TAB PO SCH ×2 (09:00→10:25)
[2017-05-22] MEDS: PRAVASTATIN SOD 20 MG TAB PO SCH ×2 (09:54→10:25)
[2017-05-22] MEDS: RIVAROXABAN 15 MG TAB PO SCH ×2 (09:54→10:25)
[2017-05-22] MEDS: PANTOPRAZOLE SOD 40 MG DELAYED RELEASE TAB PO SCH ×2 (09:54→10:25)
[2017-05-22] MEDS: SODIUM CHLORIDE 0.9% FLUSH 10 ML FLUSH IV FLUSH SCH ×2 (09:54→21:10)
[2017-05-22] MEDS: METOPROLOL TARTRATE 25 MG TAB PO SCH ×2 (09:54→10:25)
[2017-05-22] MEDS: ALLOPURINOL 300 MG TAB PO SCH ×2 (09:54→10:25)
[2017-05-22 13:25] LABS: MAGNESIUM 1.3 MG/DL (1.5-2.5)
--- NOTE | 2017-05-22 14:03 | EKG ---
Date Performed: 05/22/2017 Time Performed: 07:42:56 PTAGE: 82 years EKG: ATRIAL FIBRILLATION MARKED LEFT AXIS DEVIATION LEFT BUNDLE BRANCH BLOCK ABNORMAL ECG PREVIOUS TRACING : 05/21/2017 23.23 Compared to prior tracing no significant change DOCTOR: John Chaves Interpretating Date/Time 05/22/2017 13:59:59
--- NOTE | 2017-05-22 14:12 | EKG ---
Date Performed: 05/21/2017 Time Performed: 23:23:49 PTAGE: 82 years EKG: ATRIAL FIBRILLATION LEFT BUNDLE BRANCH BLOCK ABNORMAL ECG PREVIOUS TRACING : 04/19/2017 23.13 Compared to prior tracing no significant change DOCTOR: John Chaves Interpretating Date/Time 05/22/2017 14:06:32
--- NOTE | 2017-05-22 14:17 | HHI.DCPOC ---
Discharge Care Plan Diagnosis: (1) Fall (2) Closed head injury without loss of consciousness (3) Traumatic hematoma of forehead (4) Skin tear of left upper extremity Goals to Promote Your Health * To prevent worsening of your condition and complications * To maintain your health at the optimal level Directions to Meet Your Goals Take your medications as prescribed Follow your dietary instruction Follow activity as directed Keep your appointments as scheduled Take your immunizations and boosters as scheduled If your symptoms worsen call your PCP, if no PCP go to Urgent Care Center or Emergency Room Smoking is Dangerous to Your Health. Avoid second hand smoke Call the 24-hour hour crisis hotline for domestic abuse at [facility] May 22, 2017 14:17
[2017-05-22] MEDS ORDERED: MAGN400T2 PO (14:20)
[2017-05-22] MEDS ORDERED: MAGNESIUM SULFATE 1 GM PREMIX 100 ML IV ONE (14:30)
--- NOTE | 2017-05-22 15:40 | HHI.PR ---
Subjective Remarks Follow-up syncope. Patient has no complaints. Counselled re ETOH seems not receptive. Advised strongly against 2/2 use of xarelto with increased risk of bleeding with discussed with RN Objective Vitals Vital Signs Date Time Temp Pulse Resp B/P (MAP) Pulse Ox O2 Delivery O2 Flow Rate FiO2 05/22/17 12:38 98.0 75 16 112/65 (81) 96 05/22/17 09:39 90 05/22/17 08:29 98.3 69 20 158/90 (112) 96 147/89 (108) 144/86 (105) 05/22/17 06:19 82 05/22/17 03:57 98.2 76 18 114/85 (95) 95 05/22/17 03:00 05/22/17 02:00 72 20 113/60 (77) 97 Room Air 05/22/17 00:00 72 19 124/71 (88) 99 Room Air 05/21/17 23:17 80 18 134/75 (94) 99 Room Air 05/21/17 23:16 99 Room Air 05/21/17 23:16 99 Room Air 05/21/17 22:17 98.1 79 18 143/74 (97) 99 I/O 05/21/17 05/21/17 05/21/17 05/22/17 05/22/17 05/22/17 07:00 15:00 23:00 07:00 15:00 23:00 Intake Total 50 ml Output Total 300 ml Balance -250 ml Intake IV Total 50 ml Output Urine Total 300 ml Result Diagram: 05/22/17 0535 05/22/17 0538 Imaging Last Impressions Chest CT 05/22/17 0000 Signed Impressions: Service Date/Time: Monday, May 22, 2017 04:12 - CONCLUSION: Normal examination. Calcified atherosclerotic disease Tono Howard MD Pelvis X-Ray 05/21/172220 Signed Impressions: Service Date/Time: Sunday, May 21, 2017 22:26 - CONCLUSION: Unremarkable examination of the pelvis. Arnaud Hurley MD Head CT 05/21/172220 Signed Impressions: Service Date/Time: Sunday, May 21, 2017 23:07 - CONCLUSION: Stable examination. There is diffuse atrophy present and mild enlargment of the ventricular system. No evidence of hemorrhage or edema. Tono Howard MD Chest X-Ray 05/21/172220 Signed Impressions: Service Date/Time: Sunday, May 21, 2017 22:23 - CONCLUSION: No acute abnormality seen. There is a questionable focal density/mass in the left upper lung that can be further evaluated with a CT examination the chest. 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 No evidence of an acute fracture. Tono Howard MD Objective Remarks GENERAL: Elderly male lying in bed SKIN: 3 cm laceration on the posterior occipital scalp with hematoma. HEAD: Tenderness in region of occipital scalp EYES: Pupils equal round and reactive. Extraocular motions intact. No scleral icterus. No injection or drainage. ENT: Nose without bleeding, purulent drainage or septal hematoma. Throat without erythema, tonsillar hypertrophy or exudate. Uvula midline. Airway patent. NECK: Trachea midline. No JVD or lymphadenopathy. Supple, nontender, no meningeal signs. CARDIOVASCULAR: Irregular rate without murmurs/rubs/gallops RESPIRATORY: Clear to auscultation. Breath sounds equal bilaterally. No wheezes , rales, or rhonchi. GASTROINTESTINAL: Abdomen soft, non-tender, nondistended. No guarding. MUSCULOSKELETAL: Extremities without clubbing, cyanosis, or edema. No joint tenderness, effusion, or edema noted. No calf tenderness. Negative Homans sign bilaterally. NEUROLOGICAL: Awake and alert. Cranial nerves II through XII intact. Motor and sensory grossly within normal limits. Normal speech. No tremors Procedures none A/P Problem List: (1) Closed head injury without loss of consciousness ICD Code: S09.90XA - Unspecified injury of head, initial encounter Status: Acute (2) Traumatic hematoma of forehead ICD Code: S00.83XA - Contusion of other part of head, initial encounter Status: Acute (3) Fall ICD Code: W19.XXXA - Unspecified fall, initial encounter Status: Acute (4) Skin tear of left upper extremity ICD Code: S41.109A - Unspecified open wound of unspecified upper arm, initial encounter Status: Acute Assessment and Plan 82-year-old male with a past medical history significant for A. fib anticoagulated on Xarelto, hypertension, hyperlipidemia brought in by EMS after being found in his front yard with a head laceration. The patient has no memory of the event and his alcohol level was 190. CT of the head showed no acute bleed or edema. 1. Head trauma/fall/possible syncopal event Patient anticoagulated on Xarelto ACS ruled out, EKG significant for A. fib, LBBB without ST changes, reviewed by me Troponin negative Suspect secondary to acute alcohol intoxication Follow-up EEG 2. Chest x-ray with focal density/mass CT chest negative. Patient with atherosclerosis. Denies chest pain. Negative stress test 3 years ago 3. A. fib Continue Xarelto as no signs of acute bleed Continue metoprolol 4. Hypertension Continue metoprolol 5. Hyperlipidemia Continue statin 6. Gout Continue allopurinol 7. Alcohol abuse. Low CIWA score. Patient counseled. Doesn't seem to be motivated to discontinue alcohol. We will request case management for outpatient referral. FEN Heart healthy diet Discharge Planning Discharge patient to home Condition on discharge: Improved Regular Diet as tolerated Ad Armida activity no driving Rx written: Magnesium oxide Follow-up with primary care physician Ezra Gillespie MD May 22, 2017 15:40
[2017-05-22] MEDS ORDERED: TAMSULOSIN HCL 0.4 MG CAP PO SCH (21:00)
--- NOTE | 2017-05-22 21:39 | EKG ---
Date Performed: 05/22/2017 Time Performed: 13:26:42 PTAGE: 82 years EKG: ATRIAL FIBRILLATION LEFT BUNDLE BRANCH BLOCK ABNORMAL ECG PREVIOUS TRACING : 05/22/2017 07.42 Compared to prior tracing no significant change DOCTOR: Evelyn Navarro Interpretating Date/Time 05/22/2017 21:36:53
[2017-05-22] MEDS: MAGNESIUM OXIDE 400 MG TAB PO SCH (23:32)
[2017-05-23 04:08] VITALS: BP 118/67; PULSE 61; RESP 19; TEMP 97.4; O2SAT 99
[2017-05-23 08:15] LABS: AUTOMATED NEUTROPHIL # 2.5 TH/MM3 (1.8-7.7); BASOPHIL % 0.9 % (0.0-2.0); EOSINOPHIL # 0.1 TH/MM3 (0-0.4); EOSINOPHIL % 3.4 % (0.0-4.0); HEMATOCRIT 41.9 % (39.0-51.0); MEAN CELL VOLUME 104.8 FL (80.0-100.0); MEAN CORPUSCULAR HEMOGLOBIN 34.3 PG (27.0-34.0); MEAN CORPUSCULAR HGB CONC 32.7 % (32.0-36.0); MONO % 10.7 % (0.0-8.0); PLATELET COUNT 94 TH/MM3 (150-450); RED CELL DISTRIBUTION WIDTH 15.2 % (11.6-17.2); WHITE BLOOD COUNT 4.1 TH/MM3 (4.0-11.0)
[2017-05-23 08:18] LABS: HEMO FLAGS AUTO DIFF
--- NOTE | 2017-05-23 08:19 | MG ---
cc: CATHERINE THOMSON M.D. Lab No:[id number] Date: 05/23/2017 Age: Sex: M Race: Hyperventilation not performed. Diffuse atrophy. Some enlarged ventricles. Found on the ground, some alcohol intake. Atrial fibrillation on anticoagulants. A symmetric 9 Hz 50 microvolt posterior rhythm is seen including overall synchronous and symmetric. No epileptiform or seizure activity is noted. There are no hemisphere asymmetries. Photic stimulation was performed with some mild symmetric posterior driving. IMPRESSION Normal awake EEG. No evidence for focal or diffuse abnormality. MD AILEEN Ruth/TLL /7:55 AM /8:19 AM
[2017-05-23 08:36] LABS: BICARBONATE 27.1 MEQ/L (21.0-32.0); POTASSIUM 3.4 MEQ/L (3.5-5.1)
[2017-05-23] MEDS: SODIUM CHLORIDE 0.9% FLUSH 10 ML FLUSH IV FLUSH SCH (09:00)
[2017-05-23 09:03] VITALS: BP_SYST 101; BP_SYST 128; BP_SYST 139; BP_DIAS 67; BP_DIAS 70; BP_DIAS 80; PULSE 60; RESP 16; TEMP 98; O2SAT 96
[2017-05-23 09:06] LABS: SCAN/DIFF AUTO DIFF CONFIRMED
[2017-05-23] MEDS ORDERED: POTASSIUM CHLORIDE 10 MEQ CONTROLLED RELEASE TAB PO ONE (09:45)
[2017-05-23] MEDS ORDERED: 1/2 NS + KCL 20 MEQ INJ 1,000 ML IV SCH (10:00)
[2017-05-23] MEDS: DOCUSATE SODIUM 50 MG/SENNA 8.6 MG TAB PO SCH (10:27)
[2017-05-23] MEDS: MAGNESIUM OXIDE 400 MG TAB PO SCH (12:11)
[2017-05-23 13:05] VITALS: BP 120/70; PULSE 67; RESP 18; TEMP 98.1; O2SAT 97
--- NOTE | 2017-05-23 15:45 | HHI.PR ---
Subjective Remarks Follow-up syncope. No recurrence. Patient was mildly orthostatic this morning denies dizziness. Was ambulatory. Patient also admits he's going to cut down on his drinking but would not stop. I will not prescribe Librium at this time. Discussed with RN, we'll give IV fluids for 1 L and repeat orthostatics possible discharge later today Objective Vitals Vital Signs Date Time Temp Pulse Resp B/P (MAP) Pulse Ox O2 Delivery O2 Flow Rate FiO2 05/23/17 13:05 98.1 67 18 120/70 (87) 97 05/23/17 09:03 98.0 60 16 139/80 (99) 96 128/67 (87) 101/70 (80) 05/23/17 04:08 97.4 61 19 118/67 (84) 99 05/22/17 23:36 98.4 63 18 131/63 (85) 95 05/22/17 20:57 98.4 65 19 124/59 (80) 95 05/22/17 18:20 98.1 85 16 144/98 (113) 97 05/22/17 17:03 73 I/O 05/22/17 05/22/17 05/22/17 05/23/17 05/23/17 05/23/17 07:00 15:00 23:00 07:00 15:00 23:00 Intake Total 50 ml 300 ml Output Total 300 ml Balance -250 ml 300 ml Intake Oral 300 ml IV Total 50 ml Output Urine Total 300 ml # Voids 1 Result Diagram: 05/23/17 0635 05/23/17 0635 Imaging Last Impressions Chest CT 05/22/17 0000 Signed Impressions: Service Date/Time: Monday, May 22, 2017 04:12 - CONCLUSION: Normal examination. Calcified atherosclerotic disease Tono Howard MD Pelvis X-Ray 05/21/172220 Signed Impressions: Service Date/Time: Sunday, May 21, 2017 22:26 - CONCLUSION: Unremarkable examination of the pelvis. Arnaud Hurley MD Head CT 05/21/172220 Signed Impressions: Service Date/Time: Sunday, May 21, 2017 23:07 - CONCLUSION: Stable examination. There is diffuse atrophy present and mild enlargment of the ventricular system. No evidence of hemorrhage or edema. Tono Howard MD Chest X-Ray 05/21/172220 Signed Impressions: Service Date/Time: Sunday, May 21, 2017 22:23 - CONCLUSION: No acute abnormality seen. There is a questionable focal density/mass in the left upper lung that can be further evaluated with a CT examination the chest. 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 No evidence of an acute fracture. Tono Howard MD Objective Remarks GENERAL: Elderly male lying in bed SKIN: 3 cm laceration on the posterior occipital scalp with hematoma. CARDIOVASCULAR: Irregular rate without murmurs/rubs/gallops RESPIRATORY: Clear to auscultation. Breath sounds equal bilaterally. No wheezes , rales, or rhonchi. GASTROINTESTINAL: Abdomen soft, non-tender, nondistended. No guarding. MUSCULOSKELETAL: Extremities without clubbing, cyanosis, or edema. No joint tenderness, effusion, or edema noted. No calf tenderness. Negative Homans sign bilaterally. NEUROLOGICAL: Awake and alert. Cranial nerves II through XII intact. Motor and sensory grossly within normal limits. Normal speech. No tremors Procedures none A/P Problem List: (1) Closed head injury without loss of consciousness ICD Code: S09.90XA - Unspecified injury of head, initial encounter Status: Acute (2) Traumatic hematoma of forehead ICD Code: S00.83XA - Contusion of other part of head, initial encounter Status: Acute (3) Fall ICD Code: W19.XXXA - Unspecified fall, initial encounter Status: Acute (4) Skin tear of left upper extremity ICD Code: S41.109A - Unspecified open wound of unspecified upper arm, initial encounter Status: Acute Assessment and Plan 82-year-old male with a past medical history significant for A. fib anticoagulated on Xarelto, hypertension, hyperlipidemia brought in by EMS after being found in his front yard with a head laceration. The patient has no memory of the event and his alcohol level was 190. CT of the head showed no acute bleed or edema. 1. Head trauma/fall/possible syncopal event Patient anticoagulated on Xarelto ACS ruled out, EKG significant for A. fib, LBBB without ST changes, reviewed by me Troponin negative Suspect secondary to acute alcohol intoxication EEG negative 2. Chest x-ray with focal density/mass CT chest negative. Patient with atherosclerosis. Denies chest pain. Negative stress test 3 years ago 3. A. fib Continue Xarelto as no signs of acute bleed Continue metoprolol 4. Hypertension. Patient is mildly orthostatic but asymptomatic. IV fluids for 1 L. Repeat orthostatic vital signs Continue metoprolol and Flomax with hold parameters 5. Hyperlipidemia Continue statin 6. Gout Continue allopurinol 7. Alcohol abuse. Low CIWA score. Patient counseled. Doesn't seem to be motivated to discontinue alcohol altogether but will cut back. We will request case management for outpatient referral. FEN Heart healthy diet Discharge Planning Discharge patient to home Condition on discharge: Improved Regular Diet as tolerated Ad Armida activity no driving Rx written: Magnesium oxide Follow-up with primary care physician Ezra Gillespie MD May 23, 2017 15:45
[2017-05-23 16:42] VITALS: BP 138/79; PULSE 83; RESP 16; TEMP 98; O2SAT 97
[2017-05-23 18:52] VITALS: BP_SYST 123; BP_SYST 130; BP_SYST 142; BP_DIAS 62; BP_DIAS 88; BP_DIAS 99
== END 2017-05-23 20:18 | disposition home or self-care (01) ==
LOC: NEPC 22:11 → NEDA 05-22 00:40 → NEPGCP 05-22 03:18
PROVIDERS: ADMIT Internal Medicine; ATTEND Internal Medicine
DX: S00.03XA Contusion of scalp, initial encounter (principal); S41.112A Laceration without foreign body of left upper arm, initial encounter; W18.30XA Fall on same level, unspecified, initial encounter; R55 Syncope and collapse; M10.9 Gout, unspecified; I48.91 Unspecified atrial fibrillation; I44.7 Left bundle-branch block, unspecified; I10 Essential (primary) hypertension; E78.5 Hyperlipidemia, unspecified; I83.90 Asymptomatic varicose veins of unspecified lower extremity; F10.10 Alcohol abuse, uncomplicated; Z79.01 Long term (current) use of anticoagulants; Z87.11 Personal history of peptic ulcer disease; Z79.899 Other long term (current) drug therapy
CPT/HCPCS: 70450; 71010; 71250; 72125; 72170; 80048; 80307; 81001; 82435; 82550; 82565; 82607; 82746; 82947; 83735; 84132; 84295; 84484; 84520; 85025; 85384; 85610; 85730; 86077; 86850; 86870; 86900; 86901; 86902; 86920; 86922; 90471; 90715; 93005; 95819; 96361; 96365; 96367; 97163; 99285; G0378; G8987; G8988; J0690; J3475